=== PATIENT | male | born 1975 | race African-American/Black ===

== ENCOUNTER 2023-10-18 08:13 | Emergency (ER) | payer OTHER ==
[~2023-10-18] VITALS: Ht 182.9 cm; Wt 91.0 kg
[2023-10-18 08:17] VITALS: O2SAT 100
[2023-10-18] MEDS ORDERED: METH-653 MT (08:46)
[2023-10-18] MEDS: IBUPROFEN 600MG TABLET PO ONE (09:23)
[2023-10-18 09:34] VITALS: BP 164/88; PULSE 50; RESP 18; TEMP 98.2
== END 2023-10-18 10:49 | disposition home or self-care (01) ==
LOC: ER 08:13
DX: M79.604 Pain in right leg (principal)
CPT/HCPCS: 93971; 73502; 99284; Z7610